=== PATIENT | female | born 1995 | race African-American/Black ===

== ENCOUNTER 2017-09-04 16:58 | Emergency (ER) | payer SELFPAY ==
[~2017-09-04 16:58] MED LIST: RISP0.5T2 PO
[2017-09-04 17:10] VITALS: BP 114/66; PULSE 80; RESP 20; TEMP 97.9; O2SAT 100
[2017-09-04] MEDS ORDERED: ONDANSETRON ODT 4 MG TAB PO ONE ×2 (18:15→19:15)
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
[2017-09-04 19:09] VITALS: PULSE 85; RESP 18; O2SAT 97
== END 2017-09-04 19:20 | disposition home or self-care (01) ==
LOC: NEPD 16:58
DX: T50.901A Poisoning by unspecified drugs, medicaments and biological substances, accidental (unintentional), initial encounter (principal); R11.0 Nausea; R42 Dizziness and giddiness
CPT/HCPCS: 99283